=== PATIENT | male | born 1970 | race Caucasian/White ===

== ENCOUNTER 2016-12-09 17:28 | Emergency (ER) | payer MEDICAID ==
[~2016-12-09] VITALS: Ht 180.3 cm; Wt 108.0 kg
[2016-12-09] MEDS ORDERED: fentaNYL INJECTION 100 MCG/2 ML AMP IVP STA ×2 (17:41→18:22)
[2016-12-09] MEDS ORDERED: LACTATED RINGERS 1,000 ML IV ONE ×2 (17:41)
[2016-12-09] MEDS ORDERED: GABA600T2 PO (17:45)
[2016-12-09] MEDS ORDERED: TETANUS,DIPTH,PERTUSS P/F (BOOSTRIX) 0.5 ML VIAL IM ONE (17:45)
[2016-12-09] MEDS ORDERED: DULO30CA48 PO (17:45)
[2016-12-09] MEDS ORDERED: OMEP40CA36 PO (17:45)
[2016-12-09] MEDS ORDERED: OXYC-465 PO (17:45)
[2016-12-09] MEDS ORDERED: KETOROLAC 30 MG/ML VIAL IVP ONE (17:45)
[2016-12-09] MEDS ORDERED: MELO15TA39 PO (17:45)
[2016-12-09] MEDS ORDERED: LOVA20TA2 PO (17:45)
[2016-12-09] MEDS ORDERED: CEFP200T2 PO (17:45)
[2016-12-09] MEDS ORDERED: LISI1TAB8 PO (17:45)
[2016-12-09] MEDS ORDERED: SILVER SULFADIAZINE 50 GM CREAM ONE (18:28)
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
[2016-12-09 18:54] VITALS: BP 113/78
[2016-12-10] MEDS ORDERED: SILVER SULFADIAZINE 50 GM CREAM TOP SCH (09:00)
== END 2016-12-09 18:54 | disposition home or self-care (01) ==
LOC: EDUNIT# 17:28 → ER 17:31
DX: T20.26XA Burn of second degree of forehead and cheek, initial encounter (principal); T22.241A Burn of second degree of right axilla, initial encounter; T22.231A Burn of second degree of right upper arm, initial encounter; T21.21XA Burn of second degree of chest wall, initial encounter; T22.132A Burn of first degree of left upper arm, initial encounter; T20.111A Burn of first degree of right ear [any part, except ear drum], initial encounter; I10 Essential (primary) hypertension; M54.5 Low back pain; G89.29 Other chronic pain; F17.210 Nicotine dependence, cigarettes, uncomplicated; Z79.899 Other long term (current) drug therapy; Z79.891 Long term (current) use of opiate analgesic; V58.1XXA Passenger in pick-up truck or van injured in noncollision transport accident in nontraffic accident, initial encounter; X12.XXXA Contact with other hot fluids, initial encounter; Y92.410 Unspecified street and highway as the place of occurrence of the external cause; Y99.8 Other external cause status
CPT/HCPCS: 90471; 90715; 96374; 96375; 96376